=== PATIENT | male | born 1970 | race American Indian/Alaskan Native ===

== ENCOUNTER 2017-11-21 10:27 | Emergency (ER) | payer OTHER ==
[2017-11-21 11:21] VITALS: BP 121/55
[2017-11-21] MEDS ORDERED: MOTRIN PO ONE (15:31)
--- NOTE | 2017-11-21 16:25 | XRay Report ---
FINAL REPORT PROCEDURE: Chest. Left ribs. TECHNIQUE: PA chest. AP and oblique views of the left ribs. HISTORY: Left-sided rib pain. COMPARISON: No prior studies are available for comparison. FINDINGS: Chest: The heart and mediastinum appear normal. The lungs are clear and well expanded. There are no pleural effusions. The soft tissues and regional skeleton are unremarkable. Left ribs: The left-sided ribs appear intact. There are no fractures or other osseous abnormalities. There is no evidence of a pneumothorax. IMPRESSION: Normal study of the chest. Normal study of the left ribs.
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
--- NOTE | 2017-11-21 16:34 | XRay Report ---
FINAL REPORT PROCEDURE: Lumbar spine. TECHNIQUE: Three views. HISTORY: low back pain COMPARISON: No prior studies are available for comparison. FINDINGS: The lumbar vertebrae have normal height and alignment. There are no fractures. There is no spondylolisthesis. The disc spaces appear adequate. The sacrum and sacroiliac joints are unremarkable. IMPRESSION: No significant abnormality.
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
== END 2017-11-21 18:41 | disposition home or self-care (01) ==
LOC: ED 10:27
DX: S13.4XXA Sprain of ligaments of cervical spine, initial encounter (principal); S39.012A Strain of muscle, fascia and tendon of lower back, initial encounter; S00.93XA Contusion of unspecified part of head, initial encounter; S20.212A Contusion of left front wall of thorax, initial encounter; F17.200 Nicotine dependence, unspecified, uncomplicated; V89.2XXA Person injured in unspecified motor-vehicle accident, traffic, initial encounter; Y93.89 Activity, other specified; Y92.488 Other paved roadways as the place of occurrence of the external cause; Y99.8 Other external cause status
CPT/HCPCS: 70450; 72100; 72125